=== PATIENT | female | born 1995 ===

== ENCOUNTER 2021-01-12 22:42 | Emergency (ER) | payer BC ==
[2021-01-12 23:34] LABS: Absolute Lymphocytes (CBC) 2.6 K/uL (0.7-4.9); Basophils % 0.5 % (0-1.3); Hematocrit 39.7 % (36.0-45.0); Lymphocytes % 27.4 % (15.3-44.8); RBC Red Blood Cell Count 4.48 M/uL (3.86-4.86)
[2021-01-12] MEDS ORDERED: FAMOTIDINE 20 MG/2 ML VIAL IV ONE (23:38)
[2021-01-12] MEDS ORDERED: NA CHLORIDE 0.9% 1,000 ML ONE (23:38)
[2021-01-12] MEDS ORDERED: KETOROLAC 30 MG/ML INJ ONE (23:38)
[2021-01-12] MEDS ORDERED: ASPIRIN EC 81 MG TAB PO ONE (23:38)
[2021-01-12 23:56] LABS: ALT/SGPT 15 U/L (12-78); AST/SGOT 17 U/L (15-37); Albumin 3.8 g/dL (3.4-5.0); Alkaline Phosphatase 60 U/L (45-117); BUN Blood Urea Nitrogen 8 mg/dL (7-18); Bicarbonate 24 mmol/L (21-32); Bilirubin Direct 0.2 mg/dL (0-0.2); Bilirubin Total 0.8 mg/dL (0.2-1.0); Glucose Level 109 mg/dL (74-106); Lipase 121 U/L (73-393); Magnesium 2.2 mg/dL (1.8-2.4); NT PRO-BNP 86 pg/mL (<125); Potassium 3.4 mmol/L (3.5-5.1); Protein, Total 7.3 g/dL (6.4-8.2); Sodium Level 144 mmol/L (136-145); Troponin (Emerg Dept Use Only) < 0.02 ng/mL (0.0-0.045)
[2021-01-13 00:35] LABS: Urine Blood NEGATIVE (NEG); Urine Glucose NEGATIVE (NEG); Urine Protein NEGATIVE (NEG)
--- NOTE | 2021-01-13 01:16 | ER ---
Nurse's Notes [facility] Name: Fabio Avila Age: 25 yrs Sex: Female : 1995 Arrival Date: 01/12/2021 Time: 22:45 Bed 18 Private MD: Diagnosis: Chest pain, unspecified;Scoliosis-thoracic;Hypokalemia Presentation: 01/12 22:54 Chief complaint: Patient states: i had back pain 2 days ago and i went to chiropractor. mg2 an hour ago i have chest pain radiating to my back. 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 Coronavirus screen: Client denies travel out of the [place] in the last 14 days. At this time, the client does not indicate any symptoms associated with coronavirus-19. Ebola Screen: No symptoms or risks identified at this time. Initial Sepsis Screen: Does the patient meet any 2 criteria? No. Patient's initial sepsis screen is negative. Does the patient have a suspected source of infection? No. Patient's initial sepsis screen is negative. Risk Assessment: Do you want to hurt yourself or someone else? Patient reports no desire to harm self or others. Onset of symptoms was January 12, 2021. 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 - Social history:: Smoking status: Patient denies any tobacco usage or history of. Screenin:37 Abuse screen: Denies threats or abuse. Denies injuries from another. Nutritional em screening: No deficits noted. Tuberculosis screening: No symptoms or risk factors identified. Fall Risk IV access (20 points). Assessment: 23:36 General: Appears in no apparent distress. comfortable, Behavior is calm, cooperative. em Pain: Complains of pain in chest Pain radiates to back Quality of pain is described as aching, dull, Pain began gradually, 2 hours ago. Neuro: Level of Consciousness is awake, alert, obeys commands, Oriented to person, place, time, situation. Cardiovascular: Capillary refill < 3 seconds Patient's skin is warm and dry. Respiratory: Airway is patent Respiratory effort is even, unlabored, Respiratory pattern is regular, symmetrical. GI: No signs and/or symptoms were reported involving the gastrointestinal system. : No signs and/or symptoms were reported regarding the genitourinary system. EENT: No signs and/or symptoms were reported regarding the EENT system. Derm: Skin is intact, is healthy with good turgor, Skin is pink, warm \T\ dry. normal. Musculoskeletal: Circulation, motion, and sensation intact. Capillary refill < 3 seconds. 01/13 01:10 Reassessment: Patient appears in no apparent distress at this time. Patient and/or mg2 family updated on plan of care and expected duration. Pain level reassessed. Patient is alert, oriented x 3, equal unlabored respirations, skin warm/dry/pink. Vital Signs: 01/12 23:04 BP 114 / 60; Pulse 69; Resp 18; Temp 97.9; Pulse Ox 100% on R/A; Weight 60.33 kg; mg2 Height 5 ft. 3 in. (160.02 cm); 01/13 01:09 BP 113 / 64; Pulse 76; Resp 17; Pulse Ox 100% on R/A; mg2 01/12 23:04 Body Mass Index 23.56 (60.33 kg, 160.02 cm) mg2 ED Course: 01/12 22:45 Patient arrived in ED. ag3 22:47 Be Zazueta MD is Attending Physician. radha 22:53 Rl Campos RN is Primary Nurse. mg2 22:55 Triage completed. mg2 22:56 Arm band placed on. mg2 22:58 Chest Single View XRAY In Process Unspecified. EDMS 23:33 Inserted saline lock: 20 gauge in right antecubital area, using aseptic technique. em Blood collected. by AYLIN Thurman. Patient maintains SpO2 saturation greater than 95% on room air. 23:37 Patient has correct armband on for positive identification. urologic surgeon on. Pulse em ox on. NIBP on. Door closed. Warm blanket given. 23:38 No provider procedures requiring assistance completed. em 01/13 00:36 CT Aorta for Dissection In Process Unspecified. EDMS 01:15 Walter Granda MD is Referral Physician. radha 01:55 IV discontinued, intact, bleeding controlled, No redness/swelling at site. Pressure mg2 dressing applied. Administered Medications: 01/12 23:27 Drug: Pepcid 20 mg Route: IVP; Site: right antecubital; em 01/13 00:42 Follow up: Response: No adverse reaction mg2 01/12 23:27 Drug: TORadol 30 mg Route: IVP; Site: right antecubital; em 01/13 00:42 Follow up: Response: No adverse reaction mg2 01/12 23:28 Drug: NS 0.9% 500 ml Route: IV; Rate: bolus; Site: right antecubital; em 01/13 00:43 Follow up: Response: No adverse reaction; IV Status: Completed infusion; IV Intake: mg2 500ml 01/12 23: Drug: NS 0.9% 1000 ml Route: IV; Rate: 125 ml/hr; Site: right antecubital; em 23:28 Drug: Aspirin 81 mg Route: PO; em 01/13 00:43 Follow up: Response: No adverse reaction mg2 01:04 Drug: Potassium Effervescent Tablet 25 mEq Route: PO; mg2 01:25 Follow up: Response: No adverse reaction mg2 Intake: 00:43 IV: 500ml; Total: 500ml. mg2 Outcome: 01:15 Discharge ordered by . radha 01:55 Discharged to home ambulatory. mg2 01:55 Condition: stable 01:55 Discharge instructions given to patient, Instructed on discharge instructions, follow up and referral plans. medication usage, Demonstrated understanding of instructions, follow-up care, medications, Prescriptions given X 2. 01:56 Patient left the ED. mg2 Signatures: Dispatcher [employer] Be Harkins MD MD cha Munoz, Edgar, RN RN em Rl Campos RN RN mg2 Kenia Todd ag3
--- NOTE | 2021-01-13 01:16 | EDPHYS ---
Physician Documentation [facility] Name: Fabio Avila Age: 25 yrs Sex: Female : 1995 Arrival Date: 01/12/2021 Time: 22:45 Bed 18 Private MD: ED Physician Be Zazueta HPI: 01/12 23:10 This 25 yrs old Female presents to ER via Ambulatory with complaints of Chest radha Pain. 23:10 The patient or guardian reports chest pain that is located primarily in the anterior radha chest wall, bilaterally. The pain radiates to Associated signs and symptoms: Pertinent positives: lightheadedness, shortness of breath. 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 - Social history:: Smoking status: Patient denies any tobacco usage or history of. ROS: 23:17 Constitutional: Negative for fever, chills, and weight loss, Eyes: Negative for injury, radha pain, redness, and discharge, ENT: Negative for injury, pain, and discharge, Neck: Negative for injury, pain, and swelling, Respiratory: Negative for shortness of breath, cough, wheezing, and pleuritic chest pain, Abdomen/GI: Negative for abdominal pain, nausea, vomiting, diarrhea, and constipation, Back: Negative for injury and pain, : Negative for injury, bleeding, discharge, and swelling, MS/Extremity: Negative for injury and deformity, Skin: Negative for injury, rash, and discoloration, Neuro: Negative for headache, weakness, numbness, tingling, and seizure, Psych: Negative for depression, anxiety, suicide ideation, homicidal ideation, and hallucinations, Allergy/Immunology: Negative for hives, rash, and allergies, Endocrine: Negative for neck swelling, polydipsia, polyuria, polyphagia, and marked weight changes. 23:17 Cardiovascular: Positive for chest pain, with cough. Exam: 23:17 Constitutional: This is a well developed, well nourished patient who is awake, alert, radha and in no acute distress. Head/Face: Normocephalic, atraumatic. Eyes: Pupils equal round and reactive to light, extra-ocular motions intact. Lids and lashes normal. Conjunctiva and sclera are non-icteric and not injected. Cornea within normal limits. Periorbital areas with no swelling, redness, or edema. ENT: Nares patent. No nasal discharge, no septal abnormalities noted. Tympanic membranes are normal and external auditory canals are clear. Oropharynx with no redness, swelling, or masses, exudates, or evidence of obstruction, uvula midline. Mucous membranes moist. Neck: Trachea midline, no thyromegaly or masses palpated, and no cervical lymphadenopathy. Supple, full range of motion without nuchal rigidity, or vertebral point tenderness. No Meningismus. Chest/axilla: Normal chest wall appearance and motion. Nontender with no deformity. No lesions are appreciated. Respiratory: Lungs have equal breath sounds bilaterally, clear to auscultation and percussion. No rales, rhonchi or wheezes noted. No increased work of breathing, no retractions or nasal flaring. Abdomen/GI: Soft, non-tender, with normal bowel sounds. No distension or tympany. No guarding or rebound. No evidence of tenderness throughout. Back: No spinal tenderness. No costovertebral tenderness. Full range of motion. Skin: Warm, dry with normal turgor. Normal color with no rashes, no lesions, and no evidence of cellulitis. MS/ Extremity: Pulses equal, no cyanosis. Neurovascular intact. Full, normal range of motion. Neuro: Awake and alert, GCS 15, oriented to person, place, time, and situation. Cranial nerves II-XII grossly intact. Motor strength 5/5 in all extremities. Sensory grossly intact. Cerebellar exam normal. Normal gait. 23:17 Cardiovascular: Rate: normal, Rhythm: regular, Pulses: Pulses are 4+ in bilateral radial, brachial, femoral, popliteal, posterior tibial and and dorsalis pedis arteries.. Heart sounds: normal, Edema: is not appreciated, JVD: is not appreciated. 23:17 ECG was reviewed by the Attending Physician. Vital Signs: 23:04 BP 114 / 60; Pulse 69; Resp 18; Temp 97.9; Pulse Ox 100% on R/A; Weight 60.33 kg; mg2 Height 5 ft. 3 in. (160.02 cm); 01/13 01:09 BP 113 / 64; Pulse 76; Resp 17; Pulse Ox 100% on R/A; mg2 01/12 23:04 Body Mass Index 23.56 (60.33 kg, 160.02 cm) mg2 MDM: 01/12 22:48 Patient medically screened. [facility] 01/12 23:09 Order name: Basic Metabolic Panel; Complete Time: 00:41 [facility] 01/12 23:09 Order name: CBC with Diff; Complete Time: 00:41 [facility] 01/12 23:09 Order name: LFT's; Complete Time: 00:41 [facility] 01/12 23:09 Order name: Magnesium; Complete Time: 00:41 [facility] 01/12 23:09 Order name: NT PRO-BNP; Complete Time: 00:41 [facility] 01/12 23:09 Order name: Troponin (emerg Dept Use Only); Complete Time: 00:41 [facility] 01/12 22:48 Order name: Chest Single View XRAY [facility] 01/12 23:09 Order name: Lipase; Complete Time: 00:41 [facility] 01/12 23:09 Order name: CT Aorta for Dissection [facility] 01/12 23:52 Order name: Urine --Ancillary (enter results) tt3 01/12 23:52 Order name: Urine Dipstick--Ancillary (enter results) tt3 01/12 23:52 Order name: Urine --Ancillary; Complete Time: 00:41 EDMS 01/12 23:52 Order name: Urine Dipstick-Ancillary; Complete Time: 00:41 EDMS 01/12 22:48 Order name: EKG; Complete Time: 22:49 [facility] 01/12 22:48 Order name: EKG - Nurse/Tech; Complete Time: 23:04 [facility] 01/12 22:48 Order name: Urine Dipstick-Ancillary (obtain specimen); Complete Time: 23:51 [facility] 01/12 22:48 Order name: Urine Test (obtain specimen); Complete Time: 23:51 [facility] 01/12 23:09 Order name: Cardiac monitoring; Complete Time: 23:58 [facility] 01/12 23:09 Order name: IV Saline Lock; Complete Time: 23:59 [facility] 01/12 23:09 Order name: Labs collected and sent; Complete Time: 23:59 [facility] 01/12 23:09 Order name: O2 Per Protocol; Complete Time: 23:59 [facility] 01/12 23:09 Order name: O2 Sat Monitoring; Complete Time: 23:59 radha EC:17 Rate is 55 beats/min. Rhythm is regular. QRS [place] is Normal. MD interval is normal. QRS radha interval is normal. QT interval is normal. No Q waves. T waves are Normal. No ST changes noted. Clinical impression: NSR w/ Non-specific ST/T Changes, Sinus bradycardia, and No evidence of ischemia. Interpreted by me. Reviewed by me. Administered Medications: :27 Drug: Pepcid 20 mg Route: IVP; Site: right antecubital; em 01/13 00:42 Follow up: Response: No adverse reaction mg2 01/12 23:27 Drug: TORadol 30 mg Route: IVP; Site: right antecubital; em 01/13 00:42 Follow up: Response: No adverse reaction mg2 01/12 23:28 Drug: NS 0.9% 500 ml Route: IV; Rate: bolus; Site: right antecubital; em 01/13 00:43 Follow up: Response: No adverse reaction; IV Status: Completed infusion; IV Intake: mg2 500ml 01/12 23:28 Drug: NS 0.9% 1000 ml Route: IV; Rate: 125 ml/hr; Site: right antecubital; em 23:28 Drug: Aspirin 81 mg Route: PO; em 01/13 00:43 Follow up: Response: No adverse reaction mg2 01:04 Drug: Potassium Effervescent Tablet 25 mEq Route: PO; mg2 01:25 Follow up: Response: No adverse reaction mg2 Disposition: 01/13/21 01:15 Discharged to Home. Impression: Chest pain, unspecified, Scoliosis - thoracic, Hypokalemia. - Condition is Stable. - Discharge Instructions: Nonspecific Chest Pain, Potassium Content of Foods, Nonspecific Chest Pain, [id number], Aspirin and Your Heart, Hypokalemia. - Prescriptions for Ibuprofen 600 mg Oral Tablet - take 1 tablet by ORAL route every 8 hours As needed take with food; 15 tablet. Pepcid 20 mg Oral Tablet - take 1 tablet by ORAL route every 12 hours for 10 days; 20 tablet. - Medication Reconciliation Form, Thank You Letter, Antibiotic Education, Prescription Opioid Use form. - Work release form (01/13/21 01:57). tt3 - Follow up: Private Physician; When: 2 - 3 days; Reason: Recheck today's complaints, Continuance of care, Re-evaluation by your physician. Follow up: Walter Granda; When: 2 - 3 days; Reason: Recheck today's complaints, Re-evaluation by your physician. - Problem is new. - Symptoms have improved. Signatures: Dispatcher [employer] Be Harkins MD MD cha Munoz, Edgar, RN RN em Rl Campos RN RN mg2 Trim, Ernesto tt3 Corrections: (The following items were deleted from the chart) 01:56 01:15 01/13/2021 01:15 Discharged to Home. Impression: Chest pain, unspecified; mg2 Scoliosis - thoracic; Hypokalemia. Condition is Stable. Discharge Instructions: Nonspecific Chest Pain, Nonspecific Chest Pain, [id number], Aspirin and Your Heart, Potassium Content of Foods, Hypokalemia. Prescriptions for Ibuprofen 600 mg Oral Tablet - take 1 tablet by ORAL route every 8 hours As needed take with food; 15 tablet, Pepcid 20 mg Oral Tablet - take 1 tablet by ORAL route every 12 hours for 10 days; 20 tablet. and Forms are Medication Reconciliation Form, Thank You Letter, Antibiotic Education, Prescription Opioid Use. Follow up: Private Physician; When: 2 - 3 days; Reason: Recheck today's complaints, Continuance of care, Re-evaluation by your physician. Follow up: Walter Granda; When: 2 - 3 days; Reason: Recheck today's complaints, Re-evaluation by your physician. Problem is new. Symptoms have improved. radha
[2021-01-13] MEDS ORDERED: POTASSIUM 25 MEQ EFFERV TAB ONE (01:18)
[2021-01-13 02:00] VITALS: TEMP 97.9; O2SAT 100
[2021-01-13 02:02] VITALS: BP 113/64
--- NOTE | 2021-01-13 08:02 | RAD REPORT ---
EXAM DESCRIPTION: Martha Single View01/12/2021 10:58 pm CLINICAL HISTORY: Chest pain COMPARISON: none FINDINGS: The lungs appear clear of acute infiltrate. The heart is normal size. Scoliosis involves the spine IMPRESSION: No acute abnormalities displayed
--- NOTE | 2021-01-13 08:18 | RAD REPORT ---
EXAM DESCRIPTION: CT - Angio Aorta For Dissection - 01/13/2021 7:02 am CLINICAL HISTORY: The patient is 25 years old and is Female; Dissection;PE pain for 2 days TECHNIQUE: Axial computed tomographic angiography images of the chest, abdomen and pelvis with intra venous contrast. Sagittal and coronal reformatted images were created and reviewed. This CT exam was performed using one or more of the following dose reduction techniques: automated exposure cont rol, adjustment of the mA and/or kV according to patient size, and/or use of iterative reconstruction technique. MIP reconstructed images were created and reviewed. COMPARISON: No relevant prior studies available. FINDINGS: VASCULATURE: AORTA: No acute findings. No aortic aneurysm. No dissection. PULMONARY ARTERIES: There are no obvious filling defects identified within the pulmonary arterie s to suggest pulmonary embolism. GREAT VESSELS OF AORTIC ARCH: No acute findings. No dissection. No arterial occlusion or sig nificant stenosis. CELIAC TRUNK AND MESENTERIC ARTERIES: No acute findings. No occlusion or significant stenosis. RENAL ARTERIES: No acute findings. No occlusion or significant stenosis. ILIAC ARTERIES: No acute findings. No occlusion or significant stenosis. CHEST: LUNGS: Unremarkable. No mass. No consolidation. PLEURAL SPACE: Unremarkable. No significant effusion. No pneumothorax. HEART: Unremarkable. No cardiomegaly. No significant pericardial effusion. ABDOMEN: LIVER: Unremarkable. No mass. GALLBLADDER AND BILE DUCTS: Unremarkable. No calcified stones. No ductal dilation. PANCREAS: Unremarkable. No ductal dilation. No mass. SPLEEN: Unremarkable. No splenomegaly. ADRENALS: Unremarkable. No mass. KIDNEYS AND URETERS: Unremarkable. No hydronephrosis. No solid mass. STOMACH AND BOWEL: The stomach is decompressed. The small bowel is also decompressed. Stool is p resent throughout colon. There is no mucosal thickening or evidence of bowel obstruction. PELVIS: APPENDIX: No findings to suggest acute appendicitis. BLADDER: The bladder is well distended. REPRODUCTIVE: Unremarkable as visualized. CHEST, ABDOMEN and PELVIS: INTRAPERITONEAL SPACE: Unremarkable. No significant fluid collection. No free air. BONES/JOINTS: No acute fracture. No dislocation. SOFT TISSUES: Unremarkable. LYMPH NODES: Unremarkable. No enlarged lymph nodes. IMPRESSION: 1. No evidence of aortic aneurysm or dissection. 2. No evidence of pulmonary embolism. Electronically signed by: Deysi Little MD 01/13/2021 12:45 AM SIZING MACHINE OPERATOR Due to temporary technical issues with the PACS/Fluency reporting system, reports are being signed by the in house radiologist without review as a courtesy to ensure prompt reporting. The interpreting r adiologist is fully responsible for the content of the report.
--- NOTE | 2021-01-15 07:58 | EKG ---
Test Date: 2021-01-12 Test Time: 23:01:05 Special Needs Babysitter: MG MEASUREMENT RESULTS: Intervals: Rate: 55 [place]: 144 QRSD: 98 QT: 440 QTc: 420 [place]: P: 52 W[place]: 144 QRS: 77 T: 67 INTERPRETIVE STATEMENTS: Sinus bradycardia with sinus arrhythmia Otherwise normal ECG No previous ECG available for comparison Electronically Signed On 01-15-21 07:53:46 RIGGER SUPERVISOR by Walter Granda
== END 2021-01-13 01:56 | disposition home or self-care (01) ==
LOC: ER 22:42
DX: E87.6 Hypokalemia (principal); R05 Cough; M41.84 Other forms of scoliosis, thoracic region
CPT/HCPCS: 96361; 93005; 85025; 80048; 36415; 83735; 81025; 80076; 81003; 84484; 83690; 83880; 71275; 74175; 71045; 96375; 96374; 99285; Q9967; J7030